=== PATIENT | female | born 1975 | race Caucasian/White ===

== ENCOUNTER 2020-01-01 22:12 | Emergency (ER) | payer MEDICAID ==
[~2020-01-01] VITALS: Ht 152.4 cm; Wt 81.0 kg
[2020-01-02] MEDS ORDERED: SODIUM CHLORIDE 0.9% 1,000 ML IV ONE (00:15)
[2020-01-02 00:57] LABS: BASOPHILS % 0.3 % (0.0-2.0); EOSINOPHILS % 1.5 % (0.0-5.0); HEMATOCRIT. 35.2 % (36.0-48.0); HEMOGLOBIN. 11.9 g/dL (12.0-16.0); LYMPHOCYTES % 29.2 % (20.0-50.0); MEAN CORPUSCULAR HEMOGLOBIN 31.3 pg (28.0-32.0); MEAN CORPUSCULAR VOLUME 92.7 fL (81.0-99.0); MEAN PLATELET VOLUME 8.3 fl (7.4-10.4); MONOCYTES % 7.4 % (2.0-8.0); NEUTROPHILS % 61.6 % (40.0-76.0); PLATELET 290 x1000/uL (130-400); RED CELL DISTRIBUTION WIDTH 12.8 % (11.6-14.6)
[2020-01-02 01:03] LABS: CHLORIDE 104 mEq/L (98-107)
[2020-01-02 02:48] VITALS: BP 105/64
== END 2020-01-02 02:50 | disposition home or self-care (01) ==
LOC: ER 22:12
DX: D25.9 Leiomyoma of uterus, unspecified (principal); N94.6 Dysmenorrhea, unspecified; F41.9 Anxiety disorder, unspecified
CPT/HCPCS: 36415; 76830; 76856; 80048; 81025; 85025; 86850; 86900; 86901; 96360; 96361; 99284; J7030